=== PATIENT | female | born 1990 | race Caucasian/White ===

== ENCOUNTER 2019-11-05 08:35 | Emergency (ER) | payer OTHER ==
[2019-11-05] MEDS ORDERED: Ondansetron PF 4 MG/2 ML Vial ONE (09:04)
[2019-11-05 09:10] LABS: Bacteria/HPF None Seen HPF (None Seen); Bilirubin Negative (Negative); Blood, Urine Negative (Negative); Clarity Clear (Clear); Glucose, Urine (Dipstick) Normal (Negative); Ketone, Urine Negative (Negative); Leukocyte 25 Leu/uL (Negative); Nitrite Negative (Negative); Protein, Urine (Dipstick) Negative (Neg-Trace); RBC/HPF 0-3 HPF (0-3); Specific Gravity, Urine 1.014 (1.002-1.036); Squamous Epithelial 0-3 HPF (0-3); Urobilinogen Normal mg/dL (Less than 2); WBC/HPF 0-3 HPF (0-3); pH, Urine 7.5 (5.0-9.0)
[2019-11-05 09:12] LABS: Pregnancy Test - Urine (BHCG) POSITIVE (Negative)
[2019-11-05 09:13] LABS: Pregu Control Background? CLEAR/WHITE (CLR/WHITE); Pregu Control Bar Appear? YES (CONTROL BAR); Specific Gravity 1.014 (1.002-1.036)
[2019-11-05 09:24] LABS: #Basophils 0.1 thou/uL (0.0-0.2); #Eosinphils 0.2 thou/uL (0.0-0.7); #Lymphocytes 3.1 thou/uL (1.20-3.40); #Monocytes 0.8 thou/uL (0.11-0.59); #Neutrophils 8.1 thou/uL (1.40-6.50); %Basophils 0.5 % (0.0-1.0); %Eosinophils 1.3 % (0.0-10.0); %Lymphocytes 25.5 % (21.0-51.0); %Monocytes 6.8 % (0.0-10.0); Hemoglobin 13.2 g/dL (12.0-16.0); Mean Corpuscular HGB CONC 33.7 g/dL (32.0-36.0); Mean Corpuscular Volume 91.9 fL (78.0-98.0); Mean Platelet Volume 6.7 fL (7.4-10.4); Platelet Count 336 thou/uL (130-400); RBC Distribution Width 11.5 % (11.5-14.5); Red Blood Cell (RBC) Count 4.25 mill/uL (4.20-5.40); White Blood Cell (WBC) Count 12.3 thou/uL (4.8-10.8)
[2019-11-05] MEDS ORDERED: Promethazine HCl 25 MG/ML VIAL ONE (09:28)
[2019-11-05 10:13] LABS: ALT (SGPT) 13 U/L (8-55); AST (SGOT) 11 U/L (5-34); Albumin 3.9 g/dL (3.5-5.0); Alkaline Phosphatase 67 U/L (40-110); Anion Gap 11 mmol/L (10-20); BUN (Urea Nitrogen) 7 mg/dL (7.0-18.7); Bilirubin, Total 0.3 mg/dL (0.2-1.2); CK (CPK) 55 U/L (29-168); Calc. Creatinine Clearance 0 mL/min (70-130); Calcium 9.2 mg/dL (7.8-10.44); Carbon Dioxide 21 mmol/L (22-29); Chloride 106 mmol/L (98-107); Estimated GFR-MDRD Greater than 90; Globulin 2.8 g/dL (2.4-3.5); Glucose 92 mg/dL (70-105); Magnesium 1.8 mg/dL (1.6-2.6); Potassium 3.2 mmol/L (3.5-5.1); Protein, Total 6.7 g/dL (6.0-8.3); Sodium 135 mmol/L (136-145)
== END 2019-11-05 10:45 | disposition home or self-care (01) ==
LOC: ERS 08:35
DX: O99.282 Endocrine, nutritional and metabolic diseases complicating pregnancy, second trimester (principal); Z3A.15 15 weeks gestation of pregnancy; E86.0 Dehydration; O21.9 Vomiting of pregnancy, unspecified
CPT/HCPCS: 80053; 81003; 81015; 81025; 82550; 83735; 84702; 85025; 96361; 96374; J2405; J2550

== ENCOUNTER 2020-04-12 10:45 | Inpatient (IN) | payer BC, OTHER ==
[2020-04-12] MEDS: Lactated Ringer's 1,000 ML IV SCH ×2 (11:23→19:54)
[2020-04-12 12:10] VITALS: BMI 35.4
[2020-04-12] MEDS ORDERED: Morphine PF 10 MG/10 ML VIAL ONE (12:11)
[2020-04-12] MEDS ORDERED: ePHEDrine 50 MG/ML VIAL ONE (12:12)
[2020-04-12] MEDS ORDERED: PHENYLEPHRINE-NS 100 MCG/ML 10 ML SYRINGE ONE (12:12)
[2020-04-12] MEDS ORDERED: Oxytocin 10 UNITS/ML VIAL ONE (12:12)
[2020-04-12] MEDS ORDERED: Bicitra 30 ML UDCUP ONE (12:18)
[2020-04-12] MEDS ORDERED: hydrALAZINE 20 MG/ML VIAL SLOW IVP PRN (12:25)
[2020-04-12] MEDS ORDERED: Ondansetron PF 4 MG/2 ML Vial IVP PRN ×3 (12:25→16:10)
[2020-04-12] MEDS ORDERED: Bicitra 30 ML UDCUP PO PRN (12:25)
[2020-04-12] MEDS ORDERED: Promethazine HCl 25 MG/ML VIAL IM PRN ×3 (12:25→16:10)
[2020-04-12] MEDS ORDERED: Famotidine/PF 20 mg/2ml Vial SLOW IVP PRN (12:25)
[2020-04-12] MEDS ORDERED: CEFAZOLIN 2 GM in Premix Bag 1 BAG IVPB SCH (12:30)
[2020-04-12 12:36] LABS: Hemoglobin 13.9 g/dL (12.0-16.0); Mean Corpuscular HGB CONC 34.3 g/dL (32.0-36.0); Mean Corpuscular Volume 93.4 fL (78.0-98.0); Mean Platelet Volume 6.7 fL (7.4-10.4); Platelet Count 515 thou/uL (130-400); RBC Distribution Width 11.8 % (11.5-14.5); Red Blood Cell (RBC) Count 4.35 mill/uL (4.20-5.40); White Blood Cell (WBC) Count 16.9 thou/uL (4.8-10.8)
[2020-04-12 13:15] LABS: HBSAg Index 0.21 S/CO (0-0.99); Hep B Surf Ag Non-Reactive S/CO (NonReactive); Syphilis Antibody Nonreactive (Nonreactive); Syphilis Antibody Index 0.03 S/CO (<1.00 Non-Reactive)
[2020-04-12] MEDS ORDERED: Ondansetron PF 4 MG/2 ML Vial ONE (13:22)
--- NOTE | 2020-04-12 13:49 | PDOC.OPDEL ---
OB Operative/Delivery Note Delivery Dr/Surgeon: Moe Patel MD Assist: Margo Anton DO, PGY-2 Pre-Delivery Diagnosis: other (gestational hypertension, previous x 1) Procedure/Post Delivery Dx: repeat low transverse CS Weeks gestation: 38 Anesthesia: spinal - Findings A Sex: female Weight: 6 lb 4.037 oz - 1 min: 9 - 5 min: 9 - Additional Findings/Plan Placenta delivered: manual removal findings: low transverse hysterotomy without extension, normal uterus (subcentimeter fibroid on anterior surface), normal tubes, normal ovaries Estimated blood loss: 405 ml Compilations/Other Findings: Date of Procedure: 04/12/2020, 1245 Attending Primary Surgeon: Moe Patel MD Resident Surgeon: Margo Anton DO, PGY-2 Procedure: Repeat low transverse caesarean section Preoperative Diagnosis: 1)Term intrauterine 2)Previous x 1 3)gHTN 4)Asthma 5)GERD 6)Hx of seizures after wisdom teeth surgery Postoperative Diagnosis: 1)Term intrauterine 2)Previous x 2 3)gHTN 4)Asthma 5)GERD 6)Hx of seizures after wisdom teeth surgery Anesthesia: spinal Indications: The patient is a 30 year old G4,P1021 female at 38 weeks gestation who presents for a repeat for gHTN. Procedure in Detail: After risks, benefits, and alternatives were explained to the patient, she gave informed consent. Pre-operative antibiotics included Cefazolin 2 gram IV. The patient was taken to the operating room and spinal anesthesia was initiated. She was placed in the supine position with a left tilt and prepped and draped in usual sterile fashion. A Pfannenstiel incision was made with a scalpel and carried down to the level of the fascia which was sharply nicked. The fascial cut was extended bilaterally with Addington sissors. The inferior and superior edges of the cut fascial edges were elevated with Krzysztof clamps and the underlying rectus muscles were sharply and bluntly dissected free. The recti were divided digitally and retracted manually. The peritoneum was entered bluntly and retracted manually. Bladder blade was placed. A low transverse incision was made with the scalpel and the uterus was entered in the midline with the scalpel. Clear fluid was seen. The hysterotomy was extended manually. The infant was noted to be vertex and was easily delivered by fundal pressure. Mouth and nares were bulb suctioned. Cord clamped and cut and grossly normal female was handed to waiting nurse. Cord blood was obtained. Placenta was manually extracted, found to be intact with 3 vessel cord and discarded. The uterus was then externalized and the endometrium was curetted with a dry lap. Small subcentimeter fibroid was noted on exterior anterior uterus. The bladder blade was replaced and the uterus was closed with a running locking 1-Monocryl suture. Following this hemostasis was noted. Sepra film was then placed on the anterior uterine surface. The abdomen was irrigated with saline and suctioned free of clots. The uterus was internalized and the hysterotomy was again noted to be hemostatic. The peritoneum was closed with running non-locking 3-0 Vicryl suture. The fascia was closed with a running non-locking PDS suture. The subcutaneous tissue was irrigated and there were no bleeders. The subcutaneous tissue was then closed with three simple interrupted 3-0 Vicryl suture. The skin was approximated with amber and a pressure dressing was placed. All counts were correct. The patient tolerated the procedure well and was taken to the recovery room in stable condition. Quantitative Blood Loss: 405 ml Complications: None Specimens: Cord blood sent to lab for blood type Findings: Grossly normal female with Apgars of 9 and 9. Grossly normal placenta with 3 vessel cord discarded. Drains: Bautista to gravity draining clear urine Post delivery plan: routine recovery Post delivery plan: routine recovery
[2020-04-12] MEDS ORDERED: HYDROcodone/Acetaminophen 5/325 mg Tablet PO PRN (15:26)
[2020-04-12] MEDS ORDERED: Adacel (T-DAP) 0.5 ML SYRINGE IM ONE (15:26)
[2020-04-12] MEDS ORDERED: Bisacodyl 10 MG SUPP PR PRN (15:26)
[2020-04-12] MEDS ORDERED: diphenhydrAMINE 25 MG CAP PO PRN (15:26)
[2020-04-12] MEDS ORDERED: Lanolin Ointment 7 GM TUBE TOP PRN (15:26)
[2020-04-12] MEDS ORDERED: hydrALAZINE 20 MG/ML VIAL SLOW IVP SCH (15:26)
[2020-04-12] MEDS ORDERED: Promethazine HCl 25 MG SUPP PR PRN (16:10)
[2020-04-12] MEDS ORDERED: L&D-Morphine 4 MG/ML VIAL SLOW IVP PRN (16:10)
[2020-04-12] MEDS ORDERED: diphenhydrAMINE 50 MG/ML VIAL IVP PRN (16:10)
[2020-04-12] MEDS ORDERED: Ondansetron HCl/PF 4 MG/2 ML Vial IVP PRN (16:10)
[2020-04-12] MEDS ORDERED: Meperidine HCl/PF 25 MG/ML VIAL SLOW IVP PRN (16:10)
[2020-04-12] MEDS ORDERED: HYDROmorphone 2 MG/ML VIAL SLOW IVP PRN (16:10)
[2020-04-12] MEDS ORDERED: Naloxone HCl 0.4 mg/ml Vial IVP PRN ×2 (16:10)
[2020-04-12] MEDS ORDERED: Naloxone HCl 0.4 mg/ml Vial IV PRN (16:10)
[2020-04-12] MEDS ORDERED: Communication Order-Pharmacy FS SCH (16:15)
[2020-04-12] MEDS: Ketorolac Tromethamine 30 MG/ML VIAL IVP SCH ×2 (16:23→23:22)
[2020-04-12] MEDS ORDERED: Ketorolac Tromethamine 30 MG/ML VIAL ONE (16:23)
[2020-04-12] MEDS ORDERED: NS w/ Oxytocin 30 units 500 ML IVPB SCH (16:30)
[2020-04-12 21:01] LABS: SARS-CoV-2 MS2 Positive; SARS-CoV-2 N Gene Negative; SARS-CoV-2 S Gene Negative; SARS-CoV-2 by NAA Not Detected (NotDetected); SARS-CoV-2 orf1ab Negative
[2020-04-12] MEDS: Docusate Calcium (SURFAK) 240 MG CAP PO SCH (22:59)
[2020-04-12] MEDS: Ferrous Sulfate 325 MG TAB PO SCH (22:59)
[2020-04-13] MEDS ORDERED: Meperidine HCl/PF 25 MG/ML VIAL IM PRN (04:15)
[2020-04-13] MEDS: Ketorolac Tromethamine 30 MG/ML VIAL IVP SCH (05:42)
[2020-04-13 06:47] LABS: Hemoglobin 12.6 g/dL (12.0-16.0); Mean Corpuscular HGB CONC 33.6 g/dL (32.0-36.0); Mean Corpuscular Hemoglobin 31.7 pg (27.0-31.0); Mean Corpuscular Volume 94.3 fL (78.0-98.0); Mean Platelet Volume 6.4 fL (7.4-10.4); Platelet Count 435 thou/uL (130-400); RBC Distribution Width 11.5 % (11.5-14.5); Red Blood Cell (RBC) Count 3.98 mill/uL (4.20-5.40); White Blood Cell (WBC) Count 19.7 thou/uL (4.8-10.8)
[2020-04-13] MEDS: Simethicone Chewable 80 MG TAB PO PRN ×2 (10:06→21:13)
[2020-04-13] MEDS: Prenatal Vitamin 1 TAB PO SCH (10:06)
[2020-04-13] MEDS: Docusate Calcium (SURFAK) 240 MG CAP PO SCH ×2 (10:06→21:11)
[2020-04-13] MEDS: HYDROcodone/Acetaminophen 5/325 mg Tablet PO PRN ×3 (10:06→21:09)
[2020-04-13] MEDS: Ferrous Sulfate 325 MG TAB PO SCH (10:07)
[2020-04-13] MEDS: Ibuprofen 800 MG TAB PO SCH ×2 (14:50→21:10)
[2020-04-14] MEDS: Ibuprofen 800 MG TAB PO SCH ×2 (05:59→13:57)
[2020-04-14] MEDS: HYDROcodone/Acetaminophen 5/325 mg Tablet PO PRN ×3 (06:19→15:46)
[2020-04-14] MEDS: Simethicone Chewable 80 MG TAB PO PRN (06:21)
[2020-04-14] MEDS: Ferrous Sulfate 325 MG TAB PO SCH ×2 (08:23→09:05)
[2020-04-14] MEDS: Docusate Calcium (SURFAK) 240 MG CAP PO SCH (09:05)
[2020-04-14] MEDS: Prenatal Vitamin 1 TAB PO SCH (09:05)
[2020-04-14 11:44] VITALS: BP 130/60; TEMP 98.2
== END 2020-04-14 18:33 | disposition home or self-care (01) | DRG 788 ==
LOC: L&D-LIB 10:45 → L&D 11:24 → 3SW 16:41
PROVIDERS: ADMIT Family Medicine; ATTEND Family Medicine
PROC: 10D00Z1 Extraction of Products of Conception, Low, Open Approach (ICD-10-PCS; principal; 2020-04-12)
DX: O13.4 Gestational [pregnancy-induced] hypertension without significant proteinuria, complicating childbirth (principal); Z3A.38 38 weeks gestation of pregnancy; Z37.0 Single live birth; Z23 Encounter for immunization; Z20.828 Contact with and (suspected) exposure to other viral communicable diseases; O34.211 Maternal care for low transverse scar from previous cesarean delivery; J45.909 Unspecified asthma, uncomplicated; O99.52 Diseases of the respiratory system complicating childbirth; O99.62 Diseases of the digestive system complicating childbirth; O34.13 Maternal care for benign tumor of corpus uteri, third trimester; D25.9 Leiomyoma of uterus, unspecified; K21.9 Gastro-esophageal reflux disease without esophagitis; Z79.899 Other long term (current) drug therapy
CPT/HCPCS: 36415; 51702; 85027; 86780; 86850; 86900; 86901; 87340; 87635; 90715; J0690; J1885; J2270; J2405; J3490; U0003

== ENCOUNTER 2024-06-03 08:09 | Emergency (ER) | payer BC, OTHER, SELFPAY ==
[2024-06-03] MEDS ORDERED: Lidocaine 1% w/Epinephrine 1:100K 20 ML VIAL ONE (08:26)
[2024-06-03] MEDS ORDERED: Boostrix 0.5 ML (Tdap) VIAL (>/=7 yrs of age) ONE (08:26)
[2024-06-03] MEDS ORDERED: Ibuprofen 800 MG TAB ONE (08:34)
[2024-06-03] MEDS ORDERED: Acetaminophen 500 MG TAB ONE (08:34)
[2024-06-03] MEDS ORDERED: Bacitracin 1 PK ONE (08:48)
== END 2024-06-03 10:57 | disposition home or self-care (01) ==
LOC: ERS 08:09
DX: S61.411A Laceration without foreign body of right hand, initial encounter (principal); Z23 Encounter for immunization; F17.200 Nicotine dependence, unspecified, uncomplicated; W19.XXXA Unspecified fall, initial encounter
CPT/HCPCS: 12001; 90471; 90715; G0390